=== PATIENT | male | born 1990 | race Caucasian/White ===

== ENCOUNTER 2019-08-22 19:46 | Emergency (ER) | payer SELFPAY ==
[~2019-08-22] VITALS: Ht 177.8 cm; Wt 66.8 kg
[2019-08-22 19:54] VITALS: BP 108/75
--- NOTE | 2019-08-22 20:13 | NUR ---
PT. TO ROOM FROM LOBBY AT THIS TIME. AMBULATORY WITH STEADY GAIT.
--- NOTE | 2019-08-22 20:15 | NUR ---
PT SPEECH RAMBING. PT POOR HISTORIAN AND WILL NOT ANSWER QUESTIONS. REPORTS "I HAVE HEP A OR B IN MY MOUTH, BUT IM NOT PROMISCUOUS". CALL LIGHT WITHIN REACH, ALL SAFETY MEASURES IN PLACE.
== END 2019-08-22 20:42 | disposition home or self-care (01) ==
LOC: ED 20:10
DX: K12.0 Recurrent oral aphthae (principal); R22.9 Localized swelling, mass and lump, unspecified; Z72.9 Problem related to lifestyle, unspecified
CPT/HCPCS: 99282